=== PATIENT | female | born 1980 | race Caucasian/White ===

== ENCOUNTER → 2016-09-20 | Emergency (ER) | payer MEDICAID ==
[~2016-09-20] VITALS: Ht 147.3 cm; Wt 86.0 kg
[~2016-09-20] MED LIST: ATIVAN PO; BUS10 PO; GOOD SENSE ASP325 MG PO; METOPROLOL TART25 M1 PO; NAPROXEN PO; NIT0.4 SL; PRI20 PO; ZES10 PO; ZOC10 PO
[2016-09-20 19:08] VITALS: BP 115/73
== END ==
LOC: ED 15:08
DX: O89.4 Spinal and epidural anesthesia-induced headache during the puerperium (principal); Z88.0 Allergy status to penicillin; Z88.1 Allergy status to other antibiotic agents; Z88.5 Allergy status to narcotic agent; Z88.8 Allergy status to other drugs, medicaments and biological substances
CPT/HCPCS: J1170; J2405

== ENCOUNTER 2017-01-07 11:44 | Emergency (ER) | payer MEDICAID ==
[~2017-01-07] VITALS: Ht 147.3 cm; Wt 88.5 kg
[2017-01-07 12:22] LABS: BASOPHIL % 0.5 % (0-2); PLATELET COUNT 318 x10^3mcL (130-400)
[2017-01-07 12:30] LABS: RED CELL DISTRIBUTION WIDTH 15.1 % (11.5-14.5)
[2017-01-07 12:50] LABS: CALCIUM 8.6 mg/dL (8.5-10.1); CARBON DIOXIDE 27.2 mmol/L (21-32); CHLORIDE SERUM 105 mmol/L (98-107); CREATININE SERUM 0.8 mg/dL (0.6-1.0); GFR1 > 60 mL/min; GLUCOSE SERUM 105 mg/dL (74-106); POTASSIUM SERUM 3.4 mmol/L (3.5-5.1); SODIUM SERUM 141 mmol/L (136-145)
[2017-01-07 13:48] VITALS: BP 110/69
== END 2017-01-07 13:51 | disposition home or self-care (01) ==
LOC: ED 11:44
PROVIDERS: Emergency Medicine
DX: S29.011A Strain of muscle and tendon of front wall of thorax, initial encounter (principal); I45.6 Pre-excitation syndrome; Z88.0 Allergy status to penicillin; Z88.1 Allergy status to other antibiotic agents; Z88.5 Allergy status to narcotic agent; V43.62XA Car passenger injured in collision with other type car in traffic accident, initial encounter; Y93.I9 Activity, other involving external motion; Y92.488 Other paved roadways as the place of occurrence of the external cause; Y99.8 Other external cause status
CPT/HCPCS: J1885; Q0092

== ENCOUNTER 2017-01-23 15:53 | Emergency (ER) | payer MEDICAID ==
[~2017-01-23] VITALS: Ht 147.3 cm; Wt 86.6 kg
[2017-01-23 18:01] VITALS: BP 118/87
== END 2017-01-23 18:01 | disposition home or self-care (01) ==
LOC: ED 15:53
DX: H60.92 Unspecified otitis externa, left ear (principal); I45.6 Pre-excitation syndrome; Z88.0 Allergy status to penicillin; Z88.1 Allergy status to other antibiotic agents; Z88.5 Allergy status to narcotic agent

== ENCOUNTER 2017-03-15 09:19 | Emergency (ER) | payer MEDICAID ==
[2017-03-15 10:26] LABS: BASOPHIL % 0.1 % (0-2); PLATELET COUNT 327 x10^3mcL (130-400)
[2017-03-15 10:33] LABS: CALCIUM 8.8 mg/dL (8.5-10.1); CHLORIDE SERUM 104 mmol/L (98-107); CREATININE SERUM 0.7 mg/dL (0.6-1.0); GFR1 > 60 mL/min; GLUCOSE SERUM 114 mg/dL (74-106); POTASSIUM SERUM 3.9 mmol/L (3.5-5.1); SODIUM SERUM 139 mmol/L (136-145)
[2017-03-15 10:37] LABS: ALBUMIN 3.7 g/dL (3.4-5.0); ALKALINE PHOSPHATASE 88 U/L (46-116); ALT/SGPT 27 U/L (14-59); AST/SGOT 13 U/L (15-37); BILIRUBIN TOTAL 0.6 mg/dL (0.20-1.00); LIPASE 164 IU/L (73-393); TOTAL PROTEIN, SERUM 8.1 g/dL (6.4-8.2)
[2017-03-15 10:51] LABS: RED CELL DISTRIBUTION WIDTH 15.3 % (11.5-14.5)
[2017-03-15 13:33] VITALS: BP 128/74
== END 2017-03-15 13:34 | disposition home or self-care (01) ==
LOC: ED 09:19
PROVIDERS: Emergency Medicine
DX: N39.0 Urinary tract infection, site not specified (principal); I45.6 Pre-excitation syndrome
CPT/HCPCS: J1200; J1885; J1956; J2405; J3010; Q0092

== ENCOUNTER 2017-04-02 14:36 | Emergency (ER) | payer MEDICAID ==
[~2017-04-02] VITALS: Ht 149.9 cm; Wt 89.6 kg
[2017-04-02 16:04] LABS: BASOPHIL % 0.3 % (0-2); PLATELET COUNT 309 x10^3mcL (130-400); RED CELL DISTRIBUTION WIDTH 15.6 % (11.5-14.5)
[2017-04-02 16:07] LABS: microscopic required? YES; urine erythrocyte NEGATIVE (NEGATIVE)
[2017-04-02 16:12] LABS: CALCIUM 8.6 mg/dL (8.5-10.1); CARBON DIOXIDE 26.6 mmol/L (21-32); CHLORIDE SERUM 103 mmol/L (98-107); CREATININE SERUM 0.6 mg/dL (0.6-1.0); GFR1 > 60 mL/min; GLUCOSE SERUM 94 mg/dL (74-106); POTASSIUM SERUM 3.7 mmol/L (3.5-5.1); SODIUM SERUM 138 mmol/L (136-145)
[2017-04-02 16:16] LABS: ALBUMIN 3.6 g/dL (3.4-5.0); ALKALINE PHOSPHATASE 75 U/L (46-116); ALT/SGPT 26 U/L (14-59); AMYLASE 36 U/L (25-115); AST/SGOT 11 U/L (15-37); BILIRUBIN TOTAL 0.8 mg/dL (0.20-1.00); LIPASE 203 IU/L (73-393); TOTAL PROTEIN, SERUM 7.7 g/dL (6.4-8.2)
[2017-04-02 17:53] VITALS: BP 111/85
== END 2017-04-02 18:39 | disposition home or self-care (01) ==
LOC: ED 14:36
PROVIDERS: Emergency Medicine
DX: R10.84 Generalized abdominal pain (principal); R11.10 Vomiting, unspecified; R19.7 Diarrhea, unspecified; H10.9 Unspecified conjunctivitis; E66.2 Morbid (severe) obesity with alveolar hypoventilation; Z88.0 Allergy status to penicillin; Z88.6 Allergy status to analgesic agent; Z88.1 Allergy status to other antibiotic agents
CPT/HCPCS: 83880; J1885; J2405; J7030

== ENCOUNTER 2017-07-24 16:35 | Emergency (ER) | payer MEDICAID ==
[~2017-07-24] VITALS: Ht 147.3 cm; Wt 86.2 kg
[2017-07-24 16:40] VITALS: Ht 147.3 cm; Wt 86.2 kg
[2017-07-24 18:11] LABS: BASOPHIL % 0.3 % (0-2); PLATELET COUNT 286 x10^3mcL (130-400); RED CELL DISTRIBUTION WIDTH 15.6 % (11.5-14.5)
[2017-07-24 18:19] LABS: CALCIUM 8.5 mg/dL (8.5-10.1); CARBON DIOXIDE 27.9 mmol/L (21-32); CHLORIDE SERUM 105 mmol/L (98-107); CREATININE SERUM 0.8 mg/dL (0.6-1.0); GFR1 > 60 mL/min; GLUCOSE SERUM 87 mg/dL (74-106); POTASSIUM SERUM 3.3 mmol/L (3.5-5.1); SODIUM SERUM 139 mmol/L (136-145)
[2017-07-24 18:23] LABS: ALKALINE PHOSPHATASE 69 U/L (46-116); ALT/SGPT 21 U/L (14-59); AMYLASE 32 U/L (25-115); AST/SGOT 13 U/L (15-37); BILIRUBIN TOTAL 0.3 mg/dL (0.20-1.00); LIPASE 154 IU/L (73-393); TOTAL PROTEIN, SERUM 6.8 g/dL (6.4-8.2)
[2017-07-24 18:24] LABS: ALBUMIN 3.3 g/dL (3.4-5.0)
[2017-07-24 18:31] LABS: UA SPECIFIC GRAVITY >=1.030 (1.005-1.035); microscopic required? YES; urine erythrocyte TRACE (NEGATIVE)
[2017-07-24 20:42] VITALS: BP 118/79
== END 2017-07-24 20:42 | disposition home or self-care (01) ==
LOC: ED 16:35
PROVIDERS: Emergency Medicine
DX: R10.11 Right upper quadrant pain (principal); R11.2 Nausea with vomiting, unspecified; R50.9 Fever, unspecified; I45.6 Pre-excitation syndrome; Z88.0 Allergy status to penicillin; Z88.1 Allergy status to other antibiotic agents; Z88.5 Allergy status to narcotic agent
CPT/HCPCS: J1885; J7030; Q0092

== ENCOUNTER 2017-10-03 11:04 | Inpatient (IN) | payer OTHER, BC ==
[~2017-10-03] VITALS: Ht 149.9 cm; Wt 91.9 kg
[2017-10-03 11:28] LABS: BASOPHIL % 0.5 % (0-2); PLATELET COUNT 304 x10^3mcL (130-400); RED CELL DISTRIBUTION WIDTH 15.5 % (11.5-14.5)
[2017-10-03 11:45] LABS: CALCIUM 8.1 mg/dL (8.5-10.1); CARBON DIOXIDE 24.5 mmol/L (21-32); CHLORIDE SERUM 105 mmol/L (98-107); CREATININE SERUM 0.6 mg/dL (0.6-1.0); GFR1 > 60 mL/min; GLUCOSE SERUM 103 mg/dL (74-106); POTASSIUM SERUM 3.8 mmol/L (3.5-5.1); SODIUM SERUM 140 mmol/L (136-145)
[2017-10-03 11:50] LABS: ALBUMIN 3.4 g/dL (3.4-5.0); ALKALINE PHOSPHATASE 94 U/L (46-116); ALT/SGPT 26 U/L (14-59); AST/SGOT 16 U/L (15-37); BILIRUBIN TOTAL 0.5 mg/dL (0.20-1.00); LIPASE 147 IU/L (73-393); TOTAL PROTEIN, SERUM 7.4 g/dL (6.4-8.2)
[2017-10-03 16:32] VITALS: BP 112/79
[2017-10-03 16:40] VITALS: Ht 149.9 cm; Wt 91.9 kg
[2017-10-03 20:38] VITALS: BP 99/51
[2017-10-04 05:42] VITALS: BP 96/62
[2017-10-04 06:20] LABS: CALCIUM 7.6 mg/dL (8.5-10.1); CARBON DIOXIDE 25.1 mmol/L (21-32); CHLORIDE SERUM 111 mmol/L (98-107); CREATININE SERUM 0.7 mg/dL (0.6-1.0); GFR1 > 60 mL/min; GLUCOSE SERUM 112 mg/dL (74-106); POTASSIUM SERUM 3.8 mmol/L (3.5-5.1); SODIUM SERUM 144 mmol/L (136-145)
[2017-10-04 06:21] LABS: BASOPHIL % 0.2 % (0-2); PLATELET COUNT 261 x10^3mcL (130-400)
[2017-10-04 06:42] LABS: RED CELL DISTRIBUTION WIDTH 15.9 % (11.5-14.5)
[2017-10-04 08:53] VITALS: BP 124/71
[2017-10-04 13:35] VITALS: BP 110/70
== END 2017-10-04 15:53 | disposition home or self-care (01) | DRG 880 ==
LOC: ED 11:04 → DU 15:41
PROVIDERS: Emergency Medicine; Internal Medicine Pulmonary Disease
DX: F41.9 Anxiety disorder, unspecified (principal); R07.89 Other chest pain; Z88.6 Allergy status to analgesic agent; Z88.1 Allergy status to other antibiotic agents; Z88.5 Allergy status to narcotic agent
CPT/HCPCS: 85378; J1885; J2405; J2550; J3010; J7030; Q0092; Q9967

== ENCOUNTER 2018-03-28 16:55 | Emergency (ER) | payer MEDICAID ==
[~2018-03-28] VITALS: Ht 147.3 cm; Wt 86.8 kg
[2018-03-28 16:57] VITALS: Ht 147.3 cm; Wt 86.8 kg
[2018-03-28 17:34] LABS: BASOPHIL % 0.3 % (0-2); PLATELET COUNT 292 x10^3mcL (130-400)
[2018-03-28 17:37] LABS: RED CELL DISTRIBUTION WIDTH 15.5 % (11.5-14.5)
[2018-03-28 17:45] LABS: CALCIUM 8.7 mg/dL (8.5-10.1); CHLORIDE SERUM 101 mmol/L (98-107); CREATININE SERUM 0.8 mg/dL (0.6-1.0); GFR1 > 60 mL/min; GLUCOSE SERUM 106 mg/dL (74-106); POTASSIUM SERUM 3.3 mmol/L (3.5-5.1); SODIUM SERUM 137 mmol/L (136-145)
[2018-03-28 17:47] LABS: AMPHETAMINE QUAL UR NONE DETECTED (See below)
[2018-03-28 17:58] LABS: ALBUMIN 3.7 g/dL (3.4-5.0); ALKALINE PHOSPHATASE 84 U/L (46-116); ALT/SGPT 29 U/L (14-59); AST/SGOT 14 U/L (15-37); BILIRUBIN TOTAL 0.61 mg/dL (0.20-1.00); TOTAL PROTEIN, SERUM 8.4 g/dL (6.4-8.2)
[2018-03-28 19:38] VITALS: BP 133/76
== END 2018-03-28 19:38 | disposition home or self-care (01) ==
LOC: ED 16:55
PROVIDERS: Emergency Medicine
DX: R10.31 Right lower quadrant pain (principal); R07.89 Other chest pain; M25.511 Pain in right shoulder; E66.01 Morbid (severe) obesity due to excess calories; Z68.41 Body mass index [BMI] 40.0-44.9, adult; Z88.0 Allergy status to penicillin; Z88.1 Allergy status to other antibiotic agents; Z88.5 Allergy status to narcotic agent; Z98.890 Other specified postprocedural states
CPT/HCPCS: 83880

== ENCOUNTER 2018-11-29 22:41 | Emergency (ER) | payer MEDICAID ==
[~2018-11-29] VITALS: Ht 147.3 cm; Wt 91.6 kg
[2018-11-29 22:46] VITALS: Ht 147.3 cm; Wt 91.6 kg
[2018-11-30 01:42] VITALS: BP 121/75
== END 2018-11-30 01:42 | disposition home or self-care (01) ==
LOC: ED 22:41
DX: R07.89 Other chest pain (principal); B35.4 Tinea corporis; Z88.1 Allergy status to other antibiotic agents; Z88.0 Allergy status to penicillin; Z88.5 Allergy status to narcotic agent
CPT/HCPCS: J1200; J1885; J3010; Q0162